=== PATIENT | male | born 1950 | race Caucasian/White ===

== ENCOUNTER 2017-01-07 18:32 | Inpatient (IN) | payer MEDICARE ==
[~2017-01-07] VITALS: Ht 182.9 cm; Wt 64.4 kg
[2017-01-07 21:14] LABS: WHITE BLOOD COUNT 10.4 K/UL (4.5-11.0)
[2017-01-07 21:21] LABS: HEMOGLOBIN 4.4 gm/dl (14.0-17.5)
[2017-01-07 21:23] LABS: BUN/CREATININE RATIO 16 (0-10)
[2017-01-07] MEDS ORDERED: PROTONIX40 MG PO (23:34)
[2017-01-07] MEDS ORDERED: LEVOTHYROXINE25 MCG PO (23:34)
[2017-01-07] MEDS ORDERED: CLARITIN10 M2 PO (23:35)
[2017-01-08 14:55] LABS: BUN/CREATININE RATIO 16 (0-10)
[2017-01-08 15:08] LABS: WHITE BLOOD COUNT 12.7 K/UL (4.5-11.0)
[2017-01-08 15:09] LABS: RED BLOOD COUNT 4.06 M/UL (4.20-5.50)
[2017-01-09 05:26] LABS: BUN/CREATININE RATIO 13 (0-10)
[2017-01-09 05:39] LABS: HEMOGLOBIN 7.8 gm/dl (14.0-17.5); RED BLOOD COUNT 3.97 M/UL (4.20-5.50); WHITE BLOOD COUNT 10.7 K/UL (4.5-11.0)
== END 2017-01-09 14:20 | disposition home or self-care (01) | DRG 812 ==
LOC: ER1 18:32 → MED SURG 4 22:04 → ZEROF 22:04 → MED SURG 4 22:57
PROVIDERS: Family Medicine; ADMIT Hospitalist
PROC: 30253N1 (ICD-10-PCS; principal; 2017-01-08)
DX: D50.8 Other iron deficiency anemias (principal); K91.2 Postsurgical malabsorption, not elsewhere classified; R19.5 Other fecal abnormalities; K64.0 First degree hemorrhoids; Z98.890 Other specified postprocedural states; Z90.49 Acquired absence of other specified parts of digestive tract; Y83.8 Other surgical procedures as the cause of abnormal reaction of the patient, or of later complication, without mention of misadventure at the time of the procedure; R53.1 Weakness; E03.9 Hypothyroidism, unspecified; Z87.828 Personal history of other (healed) physical injury and trauma; Z79.899 Other long term (current) drug therapy; Z81.8 Family history of other mental and behavioral disorders; Z82.3 Family history of stroke
CPT/HCPCS: 36415; 80048; 80053; 82272; 82728; 83010; 83540; 83550; 85025; 85027; 85045; 85610; 85730; 86850; 86870; 86880; 86900; 86901; 86902; 86920; 86922; 99284; J1756; J7050; P9016

== ENCOUNTER → 2017-01-12 | Outpatient (CLI) | payer MEDICARE ==
[~2017-01-12] MED LIST: CLARITIN10 M2 PO; LEVOTHYROXINE25 MCG PO; PROTONIX40 MG PO
[2017-01-12 13:22] LABS: HEMOGLOBIN 8.1 gm/dl (14.0-17.5); RED BLOOD COUNT 4.08 M/UL (4.20-5.50); WHITE BLOOD COUNT 7.1 K/UL (4.5-11.0)
== END ==
LOC: LAB 12:33
PROVIDERS: Family Medicine
DX: D64.9 Anemia, unspecified (principal)
CPT/HCPCS: 36415; 85025

== ENCOUNTER → 2020-10-29 | Outpatient (CLI) | payer MEDICARE ==
[~2020-10-29] VITALS: Ht 188 cm; Wt 59.0 kg
[2020-10-29 09:04] LABS: HEMOGLOBIN 7.6 gm/dl (14.0-17.5)
== END ==
LOC: OPSV 07:58
PROVIDERS: Internal Medicine Hematology & Oncology
DX: D64.9 Anemia, unspecified (principal)
CPT/HCPCS: 36430; 85014; 85018; 86850; 86870; 86900; 86901; 86902; 86920; 86922; P9016

== ENCOUNTER → 2020-10-30 | Outpatient (CLI) | payer MEDICARE ==
[~2020-10-30] VITALS: Ht 188 cm; Wt 59.0 kg
== END ==
LOC: OPSV 08:00
DX: D64.9 Anemia, unspecified (principal)
CPT/HCPCS: 36430; J7050; P9016

== ENCOUNTER 2022-03-15 13:09 | Inpatient (IN) | payer MEDICARE ==
[~2022-03-15] VITALS: Ht 188 cm; Wt 63.2 kg
[2022-03-15 14:48] LABS: HEMOGLOBIN 10.7 gm/dl (14.0-17.5); RED BLOOD COUNT 3.73 M/UL (4.20-5.50)
[2022-03-16 03:25] LABS: RED BLOOD COUNT 2.07 M/UL (4.20-5.50); WHITE BLOOD COUNT 3.9 K/UL (4.5-11.0)
[2022-03-18 07:12] LABS: HEMOGLOBIN 8.4 gm/dl (14.0-17.5)
[2022-03-18 07:13] LABS: RED BLOOD COUNT 3.08 M/UL (4.20-5.50)
[2022-03-19 07:50] LABS: BUN/CREATININE RATIO 18 (0-10)
[2022-03-19 08:27] LABS: HEMOGLOBIN 9.1 gm/dl (14.0-17.5); RED BLOOD COUNT 3.17 M/UL (4.20-5.50); WHITE BLOOD COUNT 3.2 K/UL (4.5-11.0)
[2022-03-20 01:40] LABS: HEMOGLOBIN 8.1 gm/dl (14.0-17.5); RED BLOOD COUNT 2.98 M/UL (4.20-5.50)
[2022-03-20 01:41] LABS: WHITE BLOOD COUNT 6.3 K/UL (4.5-11.0)
[2022-03-20 07:29] LABS: BUN/CREATININE RATIO 18 (0-10)
[2022-03-20] MEDS ORDERED: MEROPENEM1 GM IV (13:53)
[2022-03-20] MEDS ORDERED: VANCOMYCIN IV (14:04)
[2022-03-20] MEDS ORDERED: PROTONIX IV (14:05)
[2022-03-20] MEDS ORDERED: NOREPINEPHRINE IV (14:07)
== END 2022-03-20 15:25 | disposition short-term general hospital (02) | DRG 377 ==
LOC: ER1 13:09 → CDU 17:35 → PROG CARE 17:35
PROVIDERS: Internal Medicine; Physician Assistant; Registered Nurse; ADMIT Internal Medicine
PROC: 30233N1 Transfusion of Nonautologous Red Blood Cells into Peripheral Vein, Percutaneous Approach (ICD-10-PCS; principal; 2022-03-15)
PROC: 3E033XZ Introduction of Vasopressor into Peripheral Vein, Percutaneous Approach (ICD-10-PCS; 2022-03-16)
DX: K92.2 Gastrointestinal hemorrhage, unspecified (principal); R57.1 Hypovolemic shock; J18.9 Pneumonia, unspecified organism; J98.11 Atelectasis; N17.9 Acute kidney failure, unspecified; D62 Acute posthemorrhagic anemia; K43.9 Ventral hernia without obstruction or gangrene; E03.9 Hypothyroidism, unspecified; E16.2 Hypoglycemia, unspecified; D50.9 Iron deficiency anemia, unspecified; D46.9 Myelodysplastic syndrome, unspecified; E53.8 Deficiency of other specified B group vitamins; E88.09 Other disorders of plasma-protein metabolism, not elsewhere classified; L89.151 Pressure ulcer of sacral region, stage 1; E86.0 Dehydration; Z98.890 Other specified postprocedural states; Z81.8 Family history of other mental and behavioral disorders; Z87.442 Personal history of urinary calculi; Z79.899 Other long term (current) drug therapy
CPT/HCPCS: 36415; 36430; 71045; 74018; 74160; 80048; 80053; 81001; 82270; 82550; 82553; 82728; 82962; 83540; 83550; 83605; 83615; 83690; 83735; 84484; 85018; 85025; 85027; 85045; 85610; 85730; 86140; 86850; 86870; 86880; 86900; 86901; 86920; 86922; 87040; 87086; 93005; 96374; 97162; 97166; 97530; 99285; A6212; C9113; J2185; J3370; J3475; J7070; P9016; P9047; Q9967